=== PATIENT | male | born 1960 | race African-American/Black ===

== ENCOUNTER → 2020-12-22 | Outpatient (CLI) | payer OTHER ==
--- NOTE | 2020-12-22 15:39 | RAD ---
XR LUMBAR SPINE 2-3V DATE: 12/22/2020 10:25 AM INDICATION: Reason: LOW BACK PAIN. / Spl. Instructions: / History: COMPARISON: None. FINDINGS: Five non-rib bearing lumbar-type vertebral bodies are present. Bones/Alignment: No evidence of acute compression fracture. There is no listhesis. Joints: Multilevel [id number]-by-[id number] degenerative disc disease, worst at L5-S1. Miscellaneous: None. IMPRESSION: [id number] lumbar spondylosis Electronically signed by: Jabari Ireland MD (12/22/2020 3:36 PM) [id number]
== END ==
LOC: DXRAD 10:15
PROVIDERS: ATTEND Family Medicine
DX: M51.37 Other intervertebral disc degeneration, lumbosacral region (principal); M47.816 Spondylosis without myelopathy or radiculopathy, lumbar region
CPT/HCPCS: 72100